=== PATIENT | female | born 1955 | race Caucasian/White ===

== ENCOUNTER → 2020-03-18 | Outpatient (CLI) | payer MEDICARE ==
[~2020-03-18] MED LIST: REGADENOSON 0.4 MG/5 ML SYRINGE ONE
== END | disposition home or self-care (01) ==
LOC: CFH 12:13
PROVIDERS: ATTEND Internal Medicine Cardiovascular Disease
DX: I21.19 ST elevation (STEMI) myocardial infarction involving other coronary artery of inferior wall (principal); I10 Essential (primary) hypertension
CPT/HCPCS: 78452; 93017; 93306; A9502; J2785

== ENCOUNTER 2020-04-18 09:47 | Day surgery (SDC) | payer MEDICARE ==
[~2020-04-18] VITALS: Ht 165.1 cm; Wt 113.6 kg
[2020-04-18 10:23] VITALS: BP 153/87
[2020-04-18] MEDS ORDERED: MONT10TA11 PO (10:30)
[2020-04-18] MEDS ORDERED: LABE100T6 PO (10:30)
[2020-04-18] MEDS ORDERED: ERGO500017 PO (10:30)
[2020-04-18] MEDS ORDERED: ATOR40TA PO (10:30)
[2020-04-18] MEDS ORDERED: SODIUM CHLORIDE 0.9% 1,000 ML IV SCH (11:00)
[2020-04-18 11:05] LABS: ANION GAP 9 mmol/L (5-15); CALCIUM 8.8 mg/dL (8.5-10.1); CHLORIDE 112 mmol/L (98-107); CREATININE 0.82 mg/dL (0.55-1.02)
[2020-04-18 11:15] LABS: BASOPHILS # (AUTO) 0.03 x10^3/uL (0-0.1); BASOPHILS % (AUTO) 1 % (0-1); EOSINOPHILS # (AUTO) 0.13 x10^3/uL (0-0.4); EOSINOPHILS % (AUTO) 3 % (1-7); LYMPHOCYTES # (AUTO) 1.36 x10^3/uL (1-3.4); LYMPHOCYTES % (AUTO) 28 % (22-44); MD NO; MEAN CORPUSCULAR HEMOGLOBIN 30.8 pg (27.0-34.8); MEAN CORPUSCULAR HGB CONC 33.5 g/dL (32.4-35.8); MEAN CORPUSCULAR VOLUME 91.8 fL (80-100); MEAN PLATELET VOLUME 8.9 fL (7.4-10.4); MONOCYTES # (AUTO) 0.32 x10^3/uL (0.2-0.8); MONOCYTES % (AUTO) 7 % (2-9); NEUTROPHILS # (AUTO) 2.93 x10^3/uL (1.8-6.8); NEUTROPHILS % (AUTO) 61 % (42-75); PLATELET COUNT 209 x10^3/uL (130-400); RED BLOOD COUNT 4.44 x10^6/uL (3.82-5.3)
[2020-04-18] MEDS ORDERED: LIDOCAINE-MPF 1%, 5ML ONE (14:38)
[2020-04-18] MEDS ORDERED: FENTANYL PF 100 MCG/2ML ONE (14:38)
[2020-04-18] MEDS ORDERED: BIVALIRUDIN 250 MG ONE (14:38)
[2020-04-18] MEDS ORDERED: MIDAZOLAM 1 MG/ML, 5ML ONE (14:38)
[2020-04-18] MEDS ORDERED: VERAPAMIL 2.5 MG/ML, 2ML ONE (14:38)
[2020-04-18] MEDS ORDERED: HEPARIN 1,000 UNITS/ML, 10ML ONE (14:38)
== END 2020-04-18 16:46 | disposition home or self-care (01) ==
LOC: CACL 09:47
PROVIDERS: ATTEND Internal Medicine Cardiovascular Disease
DX: R94.39 Abnormal result of other cardiovascular function study (principal); I20.8 Other forms of angina pectoris; I10 Essential (primary) hypertension; I25.2 Old myocardial infarction; E78.5 Hyperlipidemia, unspecified; J40 Bronchitis, not specified as acute or chronic; E55.9 Vitamin D deficiency, unspecified; E66.9 Obesity, unspecified; Z68.41 Body mass index [BMI] 40.0-44.9, adult; Z79.899 Other long term (current) drug therapy; Z87.891 Personal history of nicotine dependence; Z88.2 Allergy status to sulfonamides; Z88.8 Allergy status to other drugs, medicaments and biological substances; Z91.040 Latex allergy status; Z91.048 Other nonmedicinal substance allergy status; Z90.710 Acquired absence of both cervix and uterus; Z98.890 Other specified postprocedural states; Z82.49 Family history of ischemic heart disease and other diseases of the circulatory system
CPT/HCPCS: 36415; 80048; 85025; 93458; 99156; C1769; C1894; J1644; J2250; J3010; Q9967; 99157; J0583